=== PATIENT | male | born 1960 | race American Indian/Alaskan Native ===

== ENCOUNTER 2018-05-08 08:50 | Day surgery (SDC) | payer BC ==
[2018-05-08] MEDS ORDERED: LACTATED RINGERS 1,000 ML IV SCH (10:00)
[2018-05-08] MEDS ORDERED: ANCEF/STERILE WATER 2 GM/20 ML IV NR (10:12)
--- NOTE | 2018-05-08 10:38 | Anesthesia Day of Surgery ---
Anesthesia Day of Surgery - Day of Surgery Patient Examined: Yes Patient H&P Reviewed: Yes Patient is NPO: Yes Beta Blockers: No (on CCB) Derek's Test: N/A
--- NOTE | 2018-05-08 10:41 | Anesthesia Consultation ---
Anesthesia Consult and Med Hx Date of service: 05/08/18 - Airway Anesthetic Teeth Evaluation: Poor ROM Head & Neck: Adequate Mental/Hyoid Distance: Adequate Mallampati Class: Class II Intubation Access Assessment: Probably Good - Pulmonary Exam CTA: Yes - Cardiac Exam Cardiac Exam: RRR - Pre-Operative Health Status ASA Pre-Surgery Classification: ASA3 Proposed Anesthetic Plan: General - Pulmonary Hx Smoking: No Hx Sleep Apnea: Yes (DX SLEEP APNEA , NO CPAP USE.) - Cardiovascular System Hx Hypertension: Yes (X 20 YRS) - Other Systems Hx Cancer: No - Additional Comments Anesthesia Medical History Comments: active issues: HTN, sleep apnea (no CPAP), nephrolithiasis, ASA3 57 y.o.m with reassuring airway
[2018-05-08] MEDS ORDERED: XYLOCAINE MPF 2% ONE (10:56)
[2018-05-08] MEDS ORDERED: SUBLIMAZE ONE (10:56)
[2018-05-08] MEDS ORDERED: DIPRIVAN 10 MG/ML IV ONE (10:57)
[2018-05-08] MEDS ORDERED: VERSED IV ONE (10:58)
[2018-05-08] MEDS ORDERED: DECADRON ONE (11:33)
[2018-05-08] MEDS ORDERED: ZOFRAN ONE (11:33)
[2018-05-08] MEDS ORDERED: OMNIPAQUE 300 MG/50 ML (CATH LAB) IV ONE (11:45)
[2018-05-08] MEDS ORDERED: WATER FOR IRRIG STERILE IR ONE ×2 (12:46→12:47)
--- NOTE | 2018-05-08 12:46 | Short Stay Summary ---
Short Stay Documentation Date of service: 05/08/18 - History H&P: obtained from office - Allergies and Medications Current Medications: Allergies No Known Allergies Allergy (Verified 05/05/18 14:04) Home Medications Medication Instructions Recorded Confirmed Last Taken Type Amlodipine/Valsartan/Hcthiazid 1 each PO DAILY 05/05/18 05/05/18 Unknown History [Hdybb-Yxtbc-Ogmq 10-320-25 mg] Aspirin [Aspir-Low] 81 mg PO DAILY 05/05/18 05/05/18 Unknown History HYDROcodone/ACETAMINOPHEN 1 each PO PRN PRN 05/05/18 05/05/18 Unknown History [Hydrocodone-Acetamin 5-325 mg] Spironolactone [Aldactone] 25 mg PO QDAY 05/05/18 05/05/18 Unknown History Tamsulosin HCl [Flomax] 0.4 mg PO DAILY 05/05/18 05/05/18 Unknown History Valacyclovir HCl [Valtrex] 500 mg PO DAILY 05/05/18 05/05/18 Unknown History traMADol [Ultram] 50 mg PO Q6HR PRN 05/05/18 05/05/18 Unknown History Active Medications Cefazolin Sodium (Ancef/Sterile Water 2 Gm/20 Ml) 2 gm IV PREOP NR Stop: 05/08/18 23:59 Lactated Ringer's (Lactated Ringers) 1,000 mls @ 75 mls/hr IV DIRECT JOE Last Admin: 05/08/18 10:30 Dose: 75 mls/hr Documented by: - Brief post op/procedure progress note Date of procedure: 05/08/18 Pre-op diagnosis: rt ureteral stone Post-op diagnosis: same Procedure: cysto, rpg, rt ureteroscopy, stent.basket stone Anesthesia: GETA Surgeon: MINI WIGGINS Estimated blood loss: none Condition: stable - Hospital course Hospital course: ultram, cipro,norco,post op info, stone for pt - Disposition Condition at discharge: Stable Disposition: DC-01 TO HOME OR SELFCARE Short Stay Discharge Plan Follow up with: LORENZA GOFF MD [Primary Care Provider] - 7 Days
[2018-05-08] MEDS ORDERED: TORADOL ONE (13:08)
--- NOTE | 2018-05-08 13:08 | Operative Report ---
PREOPERATIVE DIAGNOSIS: Right midureteral stone. POSTOPERATIVE DIAGNOSIS: Right proximal ureteral stone. PROCEDURES: Cystoscopy, bilateral retrograde pyelograms, right ureteroscopy, holmium laser lithotripsy, basket stone extraction, double-J stent (6-Bulgarian 24 cm with an external string). SURGEON: Francesco Combs M.D. ANESTHESIA: General. ESTIMATED BLOOD LOSS: Minimal. FLUIDS: Crystalloid. COMPLICATIONS: No complications. INDICATIONS: This 57-year-old gentleman seen in the office for right flank pain. CT of abdomen and pelvis revealed a 6 mm stone. He elected for conservative therapy only to go to the Emergency Room with pain and presents now for surgical intervention. Risks, benefits, and complications were explained. The patient and his were agreed to proceed with surgical intervention. DESCRIPTION OF PROCEDURE: The patient was taken to the operative suite, placed in a supine position. After adequate general anesthesia, he was placed in a dorsal lithotomy position, prepped and draped in a sterile fashion. Pancystourethroscopy was performed with a 22-Bulgarian Storz cystoscope, no urethral abnormalities. His prostate was minimally obstructing his bladder. No tumors or stones were noted. Bilateral retrograde pyelograms were obtained with an 8 Bulgarian Jeff Davis catheter and 8 mL of contrast. No filling defects or obstruction on the left; right side obvious stone in the proximal ureter, 6 mm. A 0.035 Glidewire was placed. Rigid ureteroscopy up to the renal pelvis was performed. Stone was localized. It was engaged with 3-Bulgarian Rachel basket. The stone was pulled down in to the distal ureter. It was little difficult to extract and therefore, use a 200 micron holmium laser fiber, broke the stone up; Holmium laser lithotripsy using 4 campbell going up to 6 campbell with some fragmentation and allow extraction of the stone, which will be given to the patient. He tolerated the procedure well. A 6-Bulgarian 24 cm double-J stent with an external string was left indwelling. Rectal exam was benign. He was extubated and taken to recovery room in stable condition. He will go home on Cipro, [place] and Ultram. JOB# [id number] [facility]
[2018-05-08] MEDS ORDERED: TORADOL IV ONE (13:30)
--- NOTE | 2018-05-08 17:07 | Post Anesthesia Evaluation ---
- Post Anesthesia Evaluation Patient Participated: Yes Airway Patent: Yes Stable Respiratory Function: Yes Nausea/Vomiting: No Temp > 96.8F: Yes Pain Manageable: Yes Adequeate Hydration: Yes Anesthesia Complications: No
[2018-05-08 19:58] VITALS: BP 148/86
--- NOTE | 2018-05-09 07:42 | Fluoroscopy Report ---
FLUOROSCOPY RETROGRADE UROGRAPHY: HISTORY: Right ureteral stone. FINDINGS: Fluoroscopy was provided by radiology during retrograde urography by the urologist. 6 fluoroscopic images were captured. The images demonstrate a small filling defect in the proximal right ureter consistent with a stone. Right ureteroscopy was performed. The right ureteral stone was removed with use of a laser. Right ureteral stent was placed with good drainage of the right collecting system. The left retrograde pyelogram is normal. Please correlate with the procedural report if needed. IMPRESSION: Right ureteral stone removal. Right ureteral stent placement.
== END 2018-05-08 08:51 | disposition home or self-care (01) ==
LOC: OR 08:50
PROVIDERS: ATTEND Urology
DX: N20.1 Calculus of ureter (principal); E78.00 Pure hypercholesterolemia, unspecified; I10 Essential (primary) hypertension; G47.30 Sleep apnea, unspecified; K21.9 Gastro-esophageal reflux disease without esophagitis; Z79.899 Other long term (current) drug therapy; Z79.82 Long term (current) use of aspirin; Z79.01 Long term (current) use of anticoagulants; Z86.2 Personal history of diseases of the blood and blood-forming organs and certain disorders involving the immune mechanism
CPT/HCPCS: 36415; 52356; 74420; 84132; A4217; C1758; C1769; C2617; J0690; J1100; J1885; J2250; J2405; J2704; J3010; J7120; Q9967

== ENCOUNTER 2020-06-26 17:58 | Emergency (ER) | payer BC ==
--- NOTE | 2020-06-26 19:53 | XRay Report ---
CHEST 1 VIEW INDICATION / CLINICAL INFORMATION: Syncope. FINDINGS: SUPPORT DEVICES: None. HEART / MEDIASTINUM: No significant abnormality. LUNGS / PLEURA: No significant pulmonary or pleural abnormality. No pneumothorax. ADDITIONAL FINDINGS: No significant additional findings. IMPRESSION: 1. No acute findings. Signer Name: Michael Wong MD Signed: 06/26/2020 7:49 PM Workstation Name: [id number]
[2020-06-26 20:00] LABS: Basophils % (Auto) 0.7 % (0.0-1.8); Eosinophils # (Auto) 0.1 K/mm3 (0.0-0.4); Eosinophils % (Auto) 0.8 % (0.0-4.3); Hematocrit 40.3 % (35.5-45.6); Hemoglobin 13.9 gm/dl (11.8-15.2); Lymphocytes # (Auto) 1.5 K/mm3 (1.2-5.4); Lymphocytes % (Auto) 22.8 % (13.4-35.0); Mean Corpuscular HGB Conc 35 % (32-34); Mean Corpuscular Volume 91 fl (84-94); Monocytes # (Auto) 0.5 K/mm3 (0.0-0.8); Monocytes % (Auto) 7.2 % (0.0-7.3); Platelet Count 318 K/mm3 (140-440); Red Blood Count 4.44 M/mm3 (3.65-5.03); Red Cell Distribution Width 13.5 % (13.2-15.2)
--- NOTE | 2020-06-26 20:16 | Emergency Department Report ---
ED Syncope HPI - General Chief Complaint: Syncope Stated Complaint: SYNCOPE/BARDYCARDIA Time Seen by Provider: 06/26/20 19:35 - History of Present Illness Initial Comments: Chief complaint: "Doc, I am okay. I am just hungry. I am ready to go home." HPI: This is a 59-year-old male history of hypertension, GERD, kidney stones who presents with syncopal episode. Patient has been fasting since yesterday afternoon. He had a lab draw appointment that was changed from 10 AM to 1 PM. He had nuts crackers a small snack. He went to get a haircut. While sitting with the guys chatting, he began to feel lightheaded. He stood up to get some fresh air. He then fell to the ground. Possible brief loss of consciousness. No head trauma. He feels well now. Blood sugar per EMS was 120. He does desire something to eat. He says "I need a candy bar or something." Timing/Prior Episodes: single episode today Precipitating Factors: Positive: lightheadedness Context: sitting, standing Loss of Consciousness: brief (seconds) Current Symptoms: back to normal - Related Data Allergies/Adverse Reactions: Allergies No Known Allergies Allergy (Verified 05/05/18 14:04) Home Medications: Ambulatory Orders Amlodipine/Valsartan/Hcthiazid [Urvun-Iuhli-Mxqk 10-320-25 mg] 1 each PO DAILY 05/05/18 Aspirin [Aspir-Low] 81 mg PO DAILY 05/05/18 HYDROcodone/ACETAMINOPHEN [Hydrocodone-Acetamin 5-325 mg] 1 each PO PRN PRN 05/05/18 Spironolactone [Aldactone] 25 mg PO QDAY 05/05/18 Tamsulosin HCl [Flomax] 0.4 mg PO DAILY 05/05/18 Valacyclovir HCl [Valtrex] 500 mg PO DAILY 05/05/18 traMADoL [Ultram] 50 mg PO Q6HR PRN 05/05/18 ED Review of Systems ROS: Stated complaint: SYNCOPE/BARDYCARDIA Other details as noted in HPI Comment: All other systems reviewed and negative Constitutional: denies: fever, malaise Respiratory: denies: shortness of breath Cardiovascular: denies: chest pain Gastrointestinal: denies: abdominal pain, nausea, vomiting Skin: denies: rash, lesions Neurological: denies: headache ED Past Medical Hx - Past Medical History Previous Medical History?: Yes Hx Hypertension: Yes (X 20 YRS) Hx GERD: Yes (OCC) Hx Kidney Stones: Yes Hx HIV: No - Surgical History Past Surgical History?: Yes Additional Surgical History: hernia repair - Social History Smoking Status: Never Smoker Substance Use Type: Alcohol - Medications Home Medications: Home Medications Medication Instructions Recorded Confirmed Last Taken Type Amlodipine/Valsartan/Hcthiazid 1 each PO DAILY 05/05/18 05/05/18 05/08/18 08:00 History [Descc-Cerqz-Ojeo 10-320-25 mg] Aspirin [Aspir-Low] 81 mg PO DAILY 05/05/18 05/05/18 05/03/18 History HYDROcodone/ACETAMINOPHEN 1 each PO PRN PRN 05/05/18 05/05/18 05/06/18 History [Hydrocodone-Acetamin 5-325 mg] Spironolactone [Aldactone] 25 mg PO QDAY 05/05/18 05/05/18 05/08/18 08:00 History Tamsulosin HCl [Flomax] 0.4 mg PO DAILY 05/05/18 05/05/18 05/07/18 History Valacyclovir HCl [Valtrex] 500 mg PO DAILY 05/05/18 05/05/18 05/07/18 History traMADoL [Ultram] 50 mg PO Q6HR PRN 05/05/18 05/05/18 05/06/18 History ED Physical Exam - General Limitations: No Limitations General appearance: alert, in no apparent distress, other (Pleasant, nontoxic- appearing, appears in good health) - Head Head exam: Present: atraumatic, normocephalic - Eye Eye exam: Present: normal appearance - ENT ENT exam: Present: mucous membranes moist - Neck Neck exam: Present: normal inspection, full ROM - Respiratory Respiratory exam: Present: normal lung sounds bilaterally. Absent: respiratory distress, wheezes, rales, rhonchi - Cardiovascular Cardiovascular Exam: Present: regular rate, normal rhythm. Absent: systolic murmur, diastolic murmur, rubs, gallop - GI/Abdominal GI/Abdominal exam: Present: soft, normal bowel sounds - Rectal Rectal exam: Present: deferred - Extremities Exam Extremities exam: Present: normal inspection - Back Exam Back exam: Present: normal inspection - Neurological Exam Neurological exam: Present: alert, oriented X3 - Psychiatric Psychiatric exam: Present: normal affect, normal mood - Skin Skin exam: Present: warm, dry, intact, normal color. Absent: rash ED Course Vital Signs 06/26/20 06/26/20 06/26/20 19:24 19:30 19:46 Temperature 98.2 F Pulse Rate 53 L 55 L Respiratory 14 13 11 L Rate Blood Pressure 149/72 140/71 O2 Sat by Pulse 99 99 Oximetry 06/26/20 06/26/20 20:00 20:16 Temperature Pulse Rate 57 L Respiratory 14 Rate Blood Pressure 140/71 153/81 O2 Sat by Pulse 98 96 Oximetry ED Medical Decision Making - Lab Data Result diagrams: 06/26/20 19:45 06/26/20 19:45 Laboratory Results - last 24 hr 06/26/20 06/26/20 19:45 19:45 WBC 6.8 RBC 4.44 Hgb 13.9 Hct 40.3 MCV 91 MCH 31 MCHC 35 H RDW 13.5 Plt Count 318 Lymph % (Auto) 22.8 [place] % (Auto) 7.2 Eos % (Auto) 0.8 Baso % (Auto) 0.7 Lymph # (Auto) 1.5 [place] # (Auto) 0.5 Eos # (Auto) 0.1 Baso # (Auto) 0.0 Seg Neutrophils % 68.5 Seg Neutrophils # 4.6 Troponin T < 0.010 - EKG Data EKG shows normal: sinus rhythm, axis, intervals, QRS complexes Rate: bradycardia - EKG Data Interpretation: nonspecific ST-T wave cyn 06/26/20 20:35 EKG obtained 2001 EKG interpreted by ks Sinus bradycardia rate 50 bpm normal axis normal intervals no ST elevation nonspecific T wave pattern - Radiology Data Radiology results: report reviewed Chest radiograph 1 view: No acute findings according to radiologist impression - Medical Decision Making Vasovagal syncope: No indication of arrhythmia, pulmonary embolism, structural heart disease. Patient had not eaten in 24 hours. Patient did not have any preceding chest pain shortness of breath palpitations to indicate emergent cause. Patient did have preceding symptoms of lightheadedness. Patient heart rate has ranged from 53-55, he is ambulatory in spite bradycardia. He has had elevated blood pressure in spite mild bradycardia. Patient's previous medication includes amlodipine which could explain bradycardia. CBC chemistry troponin within normal limits. Patient is discharged home. I do not detect little emergent cause of syncope. Critical care attestation.: If time is entered above; I have spent that time in minutes in the direct care of this critically ill patient, excluding procedure time. ED Disposition Clinical Impression: Vasovagal syncope, Sinus bradycardia Disposition: DC-01 TO HOME OR SELFCARE Is pt being admited?: No Does the pt Need Aspirin: No Condition: Stable Instructions: Syncope (ED), Syncope, Oehd-kx-Lrdw Referrals: PRIMARY CARE, [Primary Care Provider] - 3-5 Days
[2020-06-26 20:22] VITALS: BP 153/81
[2020-06-26 20:35] LABS: Alanine Aminotransferase 29 units/L (7-56); Albumin 4.3 g/dL (3.9-5); BUN/Creatinine Ratio 15; Blood Urea Nitrogen 20 mg/dL (9-20); Calcium 9.4 mg/dL (8.4-10.2); Hemolysis Index 9
--- NOTE | 2020-06-27 17:13 | Electrocardiograph Report ---
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
== END 2020-06-26 20:50 | disposition home or self-care (01) ==
LOC: ED 17:58
DX: R55 Syncope and collapse (principal); R00.1 Bradycardia, unspecified; I10 Essential (primary) hypertension; K21.9 Gastro-esophageal reflux disease without esophagitis; Z98.890 Other specified postprocedural states; Z79.899 Other long term (current) drug therapy
CPT/HCPCS: 36415; 71045; 80053; 84484; 85025; 93005

== ENCOUNTER 2020-10-15 05:50 | Day surgery (SDC) | payer BC ==
[2020-10-15] MEDS ORDERED: MIDAZOLAM 2 MG/2 ML INJ IV NR (06:00)
[2020-10-15] MEDS ORDERED: LACTATED RINGERS 1,000 ML IV SCH (06:00)
[2020-10-15] MEDS ORDERED: BACTERIOSTATIC SODIUM CHLORIDE 0.9% 30 ML VIAL INFILTRATI ONE (06:32)
[2020-10-15] MEDS ORDERED: ceFAZolin/STERILE WATER 2 GM/20 ML SYRINGE IV NR (07:00)
--- NOTE | 2020-10-15 07:10 | Anesthesia Consultation ---
Anesthesia Consult and Med Hx Date of service: 10/15/20 - Airway Anesthetic Teeth Evaluation: Good ROM Head & Neck: Adequate Mental/Hyoid Distance: Adequate Mallampati Class: Class III Intubation Access Assessment: Possibly Difficult - Cardiac Exam Cardiac Exam: RRR - Pre-Operative Health Status ASA Pre-Surgery Classification: ASA3 Proposed Anesthetic Plan: General - Pulmonary Hx Smoking: No Hx Respiratory Symptoms: No Hx Sleep Apnea: Yes (no CPAP) - Cardiovascular System Hx Hypertension: Yes (took antihypertensives this morning) Hx Heart Attack/AMI: No Hx Cardia Arrhythmia: Yes (cardiology eval on chart) Hx Pacemaker: No Hx Internal Defibrillator: No - Central Nervous System CVA: No - Endocrine Hx Renal Disease: No Hx Liver Disease: No Hx Insulin Dependent Diabetes: No Hx Non-Insulin Dependent Diabetes: No Hx Thyroid Disease: No - Additional Comments Anesthesia Medical History Comments: No hx anesthetic complications.
--- NOTE | 2020-10-15 07:10 | Anesthesia Day of Surgery ---
Anesthesia Day of Surgery - Day of Surgery Patient Examined: Yes Patient H&P Reviewed: Yes Patient is NPO: Yes
[2020-10-15] MEDS ORDERED: fentaNYL 100 MCG/2 ML INJ ONE (07:13)
[2020-10-15] MEDS ORDERED: propofoL 200 MG/20 ML VIAL IV ONE (07:14)
[2020-10-15] MEDS ORDERED: ePHEDrine SULFATE 50 MG/1 ML INJ ONE ×2 (07:14→08:32)
[2020-10-15 07:22] LABS: BUN/Creatinine Ratio 17; Blood Urea Nitrogen 22 mg/dL (9-20); Calcium 8.9 mg/dL (8.4-10.2); Hemolysis Index 10
[2020-10-15] MEDS ORDERED: WATER FOR IRRIG STERILE 2000 ML IR ONE ×2 (07:30)
[2020-10-15] MEDS ORDERED: WATER FOR IRRIG STERILE 1,500 ML BOTTLE IR ONE (07:31)
[2020-10-15] MEDS ORDERED: LIDOCAINE MPF (2%) 20 MG/1 ML VIAL 5 ML ONE (08:30)
[2020-10-15] MEDS ORDERED: ONDANSETRON 4 MG/2 ML INJ ONE (08:30)
[2020-10-15] MEDS ORDERED: dexAMETHasone 20 MG/5 ML VIAL ONE (08:30)
[2020-10-15] MEDS ORDERED: HYDROcodone/ACETAMINOPHEN 5-325 MG TAB PO PRN (09:00)
[2020-10-15] MEDS ORDERED: ONDANSETRON 4 MG/2 ML INJ IV PRN (09:00)
[2020-10-15] MEDS ORDERED: fentaNYL 100 MCG/2 ML INJ IV PRN (09:00)
--- NOTE | 2020-10-15 09:02 | Short Stay Summary ---
Short Stay Documentation Date of service: 10/15/20 - History H&P: obtained from office - Allergies and Medications Current Medications: Allergies No Known Allergies Allergy (Verified 05/05/18 14:04) Home Medications Medication Instructions Recorded Confirmed Last Taken Type Aspirin [Aspir-Low] 81 mg PO DAILY 05/05/18 10/09/20 05/03/18 History Adult Probiotic 1 cap PO DAILY 10/07/20 10/07/20 Unknown History Amlodipine Besylate 10 mg PO BID 10/07/20 10/14/20 Unknown History Ezetimibe 10 mg PO DAILY 10/07/20 10/07/20 Unknown History Metamucil 1 dose PO DAILY 10/07/20 10/07/20 Unknown History Nebivolol HCl [Bystolic] 5 mg PO QHS 10/07/20 10/14/20 Unknown History Spironolactone [Aldactone] 25 mg PO PRN PRN 10/09/20 10/14/20 Unknown History Valacyclovir HCl [Valacyclovir] 500 mg PO PRN PRN 10/09/20 10/09/20 Unknown History cloNIDine [Catapres] 0.1 mg PO PRN PRN 10/09/20 10/14/20 Unknown History hydrALAZINE [Apresoline] 50 mg PO BID 10/09/20 10/09/20 Unknown History Tamsulosin [Flomax] 0.4 mg PO QDAY 10/14/20 10/14/20 Unknown History Valsartan/Hydrochlorothiazide 1 each PO DAILY 10/14/20 10/14/20 Unknown History [Valsartan-Hctz 320-25 mg Tab] Active Medications Cefazolin Sodium (Cefazolin/Sterile Water 2 Gm/20 Ml Syringe) 2 gm IV PREOP NR Stop: 10/15/20 23:59 Lactated Ringer's (Lactated Ringers) 1,000 mls @ 100 mls/hr IV DIRECT JOE Stop: 10/15/20 23:59 Midazolam HCl (Midazolam 2 Mg/2 Ml Inj) 2 mg IV PREOP NR Stop: 10/15/20 23:00 - Brief post op/procedure progress note Date of procedure: 10/15/20 Pre-op diagnosis: rt hydronephrosis Post-op diagnosis: same Procedure: cysto, bilat rpg, rt ureteroscopy stent (stricture) Anesthesia: GETA Surgeon: MINI WIGGINS Estimated blood loss: none Pathology: none Condition: stable - Hospital course Hospital course: bactrim, norduke , post op info on chart - Disposition Condition at discharge: Stable Disposition: DC-01 TO HOME OR SELFCARE Short Stay Discharge Plan Follow up with: LORENZA GOFF MD [Primary Care Provider] - 7 Days
--- NOTE | 2020-10-15 09:23 | Fluoroscopy Report ---
FLUOROSCOPY RETROGRADE UROGRAPHY HISTORY: Right hydronephrosis COMPARISON: 05/08/2018 FINDINGS: 1.4 minutes of fluoroscopy time was provided by radiology during retrograde urography by ur elkinogy. 8 fluoroscopic images are presented. The left retrograde pyelogram is normal. No images of the right retrograde pyelogram are presented. Right ureteroscopy was performed before the operative note s. A right ureteral stricture was apparently noted. Subsequent images demonstrate placement of a doub le-J right ureteral stent which is in good position on the final image. Please correlate with the pro cedural report. IMPRESSION: Right ureteral stent placement as described. Please correlate with the procedural report as needed. Signer Name: Jose Harding Jr, MD Signed: 10/15/2020 9:19 AM Workstation Name: [id number]
--- NOTE | 2020-10-15 09:35 | Operative Report ---
DATE OF SURGERY: 10/15/2020 PREOPERATIVE DIAGNOSIS: Right hydronephrosis. POSTOPERATIVE DIAGNOSIS: Right hydronephrosis, secondary to distal stricture. PROCEDURES PERFORMED: Cystoscopy, bilateral retrograde pyelograms, right ureteroscopy, double-J stent placement (6-Slovenian 22 cm with a short internal string). SURGEON: Francesco Combs MD ANESTHESIA: General. ESTIMATED BLOOD LOSS: Minimal. FLUIDS: Crystalloid. COMPLICATIONS: No complications. INDICATIONS: This patient is a 59-year-old gentleman, known to our service with a history of kidney stones, status post right stone extraction in 2019. He has been followed conservatively since that time. 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 Workup revealed right hydronephrosis. He presents now for intervention. DESCRIPTION OF PROCEDURE: The patient was taken to the operative suite, placed in the supine position. After adequate general anesthesia, placed in the dorsal lithotomy position, prepped and draped in a sterile fashion. Pancystourethroscopy was performed with a 22-Slovenian Storz cystoscope. No urethral abnormalities. His prostate displayed some mild trilobar obstruction. His bladder, mild diffuse trabeculation. Bilateral retrograde pyelograms were obtained with an 8-Slovenian Huron catheter and 8 mL of contrast. No filling defects or obstruction on the left. Right side could only feel the distal ureter. Next, after attempts with a 0.035 Glidewire, a curved open-ended catheter could not advance the wire. Right ureteroscopy was then performed. I was able to advance the scope into approximately 1 cm of the distal ureter and at that point, I was able to advance a 0.035 Glidewire up into the collecting system under fluoroscopic guidance. I was able to perform ureteroscopy to the lower aspect of the SI joint. I encouraged a dense stricture, could not advance my scope at that point. I then elected to place a 6-Slovenian 22 cm double-J stent with a short string to allow dilation of the tract and will come back at a later date for further evaluation. We will also put him on antibiotics to minimize infection. Rectal exam was benign. He was extubated and taken to recovery room and go home on Bactrim and [place]. TID: [id number] RECEIPT: [id number] [facility]
[2020-10-15 10:11] VITALS: BP 145/81
== END 2020-10-15 10:25 | disposition home or self-care (01) ==
LOC: OR 05:50
PROVIDERS: ATTEND Urology
DX: N13.39 Other hydronephrosis (principal); G47.30 Sleep apnea, unspecified; I10 Essential (primary) hypertension; K21.9 Gastro-esophageal reflux disease without esophagitis; E78.00 Pure hypercholesterolemia, unspecified; M19.90 Unspecified osteoarthritis, unspecified site; Z87.442 Personal history of urinary calculi; Z79.82 Long term (current) use of aspirin; Z79.899 Other long term (current) drug therapy; Z98.890 Other specified postprocedural states
CPT/HCPCS: 36415; 52332; 74420; 80048; A4217; C1726; C1758; C1769; C2617; J0690; J1100; J2250; J2405; J2704; J3010; J7120; Q9967

== ENCOUNTER 2020-11-05 05:51 | Day surgery (SDC) | payer BC ==
[~2020-11-05 05:51] MED LIST: IOHEXOL 300 MG/ML 50ML IV ONE; WATER FOR IRRIG STERILE 1,500 ML BOTTLE IR ONE; WATER FOR IRRIG STERILE 2000 ML IR ONE
[2020-11-05] MEDS ORDERED: BACTERIOSTATIC SODIUM CHLORIDE 0.9% 30 ML VIAL INFILTRATI ONE (06:19)
[2020-11-05] MEDS ORDERED: ceFAZolin/Water 2 GM/20 ML 2 GM/20 ML SYRINGE IV ONE (06:20)
[2020-11-05] MEDS ORDERED: LACTATED RINGERS 1,000 ML IV SCH (06:30)
--- NOTE | 2020-11-05 07:24 | Anesthesia Day of Surgery ---
Anesthesia Day of Surgery - Day of Surgery Patient Examined: Yes Patient H&P Reviewed: Yes Patient is NPO: Yes Beta Blockers: Yes Cardiac Clearance: Yes
[2020-11-05] MEDS ORDERED: HYDROmorphone 1 MG/1 ML INJ IV NR (07:27)
[2020-11-05] MEDS ORDERED: LIDOCAINE PF 100 MG/5 ML (CARDIAC SYRINGE) IV ONE (07:27)
[2020-11-05] MEDS ORDERED: MIDAZOLAM 2 MG/2 ML INJ IV NR (07:27)
[2020-11-05] MEDS ORDERED: propofoL 200 MG/20 ML VIAL IV ONE (07:28)
[2020-11-05] MEDS ORDERED: fentaNYL 100 MCG/2 ML INJ ONE (07:28)
[2020-11-05] MEDS ORDERED: ceFAZolin/STERILE WATER 2 GM/20 ML SYRINGE IV NR (07:28)
--- NOTE | 2020-11-05 07:29 | Anesthesia Consultation ---
Anesthesia Consult and Med Hx Date of service: 11/05/20 - Airway Anesthetic Teeth Evaluation: Chipped, Bridges ROM Head & Neck: Adequate Mental/Hyoid Distance: Adequate Mallampati Class: Class II Intubation Access Assessment: Good - Pre-Operative Health Status ASA Pre-Surgery Classification: ASA3 Proposed Anesthetic Plan: General - Pulmonary Hx Respiratory Symptoms: No (+2FS) Hx Sleep Apnea: Yes (no CPAP) - Cardiovascular System Hx Hypertension: Yes Hx Cardia Arrhythmia: Yes (cardiology eval on chart) - Central Nervous System Hx Back Pain: Yes (LOWER) Hx Psychiatric Problems: No - Endocrine Hx Renal Disease: Yes (Stones) Hx Insulin Dependent Diabetes: No Hx Non-Insulin Dependent Diabetes: No Hx Thyroid Disease: No - Hematic Hx Sickle Cell Disease: No - Other Systems Hx Alcohol Use: Yes (OCC.) Hx Substance Use: No Hx Cancer: No - Additional Comments Anesthesia Medical History Comments: Was here [id number]
[2020-11-05] MEDS ORDERED: dexAMETHasone 20 MG/5 ML VIAL ONE (07:32)
[2020-11-05] MEDS ORDERED: KETAMINE/STERILE WATER 50 MG/ML SYRINGE ONE (07:36)
[2020-11-05] MEDS ORDERED: ePHEDrine SULFATE 50 MG/1 ML INJ ONE (08:02)
[2020-11-05] MEDS ORDERED: IOHEXOL 300 MG/ML 50ML IV ONE (08:13)
[2020-11-05] MEDS ORDERED: WATER FOR IRRIG STERILE 2000 ML IR ONE (08:13)
[2020-11-05] MEDS ORDERED: WATER FOR IRRIG STERILE 1,500 ML BOTTLE IR ONE (08:13)
[2020-11-05] MEDS ORDERED: PHENYLEPHRINE/NS 1,000 MCG/10 ML SYRINGE (OR USE) IV ONE (09:00)
--- NOTE | 2020-11-05 09:04 | Short Stay Summary ---
Short Stay Documentation Date of service: 11/05/20 - History H&P: obtained from office - Allergies and Medications Current Medications: Allergies No Known Allergies Allergy (Verified 11/04/20 10:27) Home Medications Medication Instructions Recorded Confirmed Last Taken Type Aspirin [Aspir-Low] 81 mg PO DAILY 05/05/18 11/04/20 10/13/20 History Adult Probiotic 1 cap PO DAILY 10/07/20 11/04/20 10/14/20 History Amlodipine Besylate 10 mg PO BID 10/07/20 11/04/20 10/14/20 History Ezetimibe 10 mg PO DAILY 10/07/20 11/04/20 10/14/20 History Metamucil 1 dose PO DAILY 10/07/20 11/04/20 10/14/20 History Nebivolol HCl [Bystolic] 5 mg PO QHS 10/07/20 11/04/20 10/14/20 History Spironolactone [Aldactone] 25 mg PO PRN PRN 10/09/20 11/04/20 10/14/20 History Valacyclovir HCl [Valacyclovir] 500 mg PO PRN PRN 10/09/20 11/04/20 1 Week Ago History ~10/08/20 cloNIDine [Catapres] 0.1 mg PO PRN PRN 10/09/20 11/04/20 10/15/20 04:00 History hydrALAZINE [Apresoline] 50 mg PO BID 10/09/20 11/04/20 10/15/20 04:00 History Tamsulosin [Flomax] 0.4 mg PO QDAY 10/14/20 11/04/20 10/14/20 History Valsartan/Hydrochlorothiazide 1 each PO DAILY 10/14/20 11/04/20 10/14/20 History [Valsartan-Hctz 320-25 mg Tab] Active Medications Cefazolin Sodium (Cefazolin/Sterile Water 2 Gm/20 Ml Syringe) 2 gm IV PREOP NR Stop: 11/05/20 14:00 Hydromorphone HCl (Hydromorphone 1 Mg/1 Ml Inj) 0.5 mg IV ONCE NR Stop: 11/05/20 12:00 Lactated Ringer's (Lactated Ringers) 1,000 mls @ 100 mls/hr IV DIRECT JOE Midazolam HCl (Midazolam 2 Mg/2 Ml Inj) 2 mg IV ONCE NR Stop: 11/05/20 12:00 - Brief post op/procedure progress note Date of procedure: 11/05/20 Pre-op diagnosis: rt ureteral stricture Post-op diagnosis: same Procedure: cysto, rpg, rt ureteroscopy, balloon stricture, barbotage (rt ureter), stent exchange Anesthesia: GETA Surgeon: MINI WIGGINS Estimated blood loss: none - Hospital course Hospital course: bactrim, norco , post op info on chart - Disposition Condition at discharge: Stable Disposition: 01 HOME / SELF CARE / HOMELESS Short Stay Discharge Plan Follow up with: LORENZA GOFF MD [Primary Care Provider] - 7 Days
[2020-11-05] MEDS ORDERED: ONDANSETRON 4 MG/2 ML INJ ONE (09:18)
--- NOTE | 2020-11-05 09:30 | Operative Report ---
DATE OF SURGERY: 11/05/2020 PREOPERATIVE DIAGNOSES: Right hydronephrosis, right ureteral stricture. POSTOPERATIVE DIAGNOSES: Right hydronephrosis, right ureteral stricture. PROCEDURES PERFORMED: Cystoscopy, right retrograde pyelogram, right ureteroscopy, balloon dilation right ureteral stricture, barbotage right ureter, double-J stent exchange (6-S[place] 24 cm with a short internal string). SURGEON: Fracnesco Combs MD ANESTHESIA: General. ESTIMATED BLOOD LOSS: Minimal. FLUIDS: Crystalloid. COMPLICATIONS: No complications. INDICATIONS: This patient is a 59-year-old gentleman known to our service with a history of kidney stones, status post ureteroscopies in the past. Recently, he had hydronephrosis, underwent cystoscopy, stent. Ureteroscopy revealed a dense stricture. I was able to get up stent at that time and he presents today for a second look and possible evaluation for stone. DESCRIPTION OF PROCEDURE: The patient was taken to the operative suite, placed in a supine position. After adequate general anesthesia, placed in the dorsal lithotomy position, prepped and draped in a sterile fashion. Pancystourethroscopy was performed with a 22-[place] Storz cystoscope. No urethral or prostatic abnormalities. Bladder, obvious stent left in the right ureter with a short string. The stent was pulled out to the meatus. The wire was advanced into the ureter under fluoroscopic guidance. Rigid ureteroscopy up to the area of concern, which is just above the lower aspect of the SI joint, approximately 1 cm above the SI joint. There was whitish material, appears to be scar tissue. I was able to pass a second wire and after multiple attempts, I was unable to advance my scope. Therefore, I then placed a 4 [place] balloon dilator, dilated the stricture and I was then able to advance my scope into the renal pelvis. No stones could be appreciated. No signs of tumor. A barbotage was taken above the stricture and I pulled my scope back to the area of concern and took some more barbotage specimen. The area of concern appears to be approximately 1 cm, whitish, and has some areas of erythema, does not look like obvious tumor. A 6-[place] 24 cm double-J stent with a short internal string was left indwelling. Rectal exam was benign. He was extubated and taken to recovery room. He will go home on [place] and [place]. We will wait for the path specimen to determine if the segment of the ureter can be excised with a primary reanastomosis versus nephrectomy as other options. TID: [id number] RECEIPT: [id number] MIMI/LORENA
[2020-11-05 10:34] VITALS: BP 130/77
--- NOTE | 2020-11-05 11:37 | Fluoroscopy Report ---
FL retrograde urography, FL ureter/nephrostomy dilat RT INDICATION / CLINICAL INFORMATION: URETHRAL STRICTURE. COMPARISON: None available. FINDINGS: Alignment dilatation and stent placement. Fluoroscopy time: 36 seconds. Fluoroscopic images: 9 Signer Name: King Stephenson MD Signed: 11/05/2020 11:32 AM Workstation Name: [id number]
--- NOTE | 2020-11-05 15:31 | Post Anesthesia Evaluation ---
- Post Anesthesia Evaluation Patient Participated: Yes Airway Patent: Yes Stable Respiratory Function: Yes Nausea/Vomiting: No Temp > 96.8F: Yes Pain Manageable: Yes Adequeate Hydration: Yes Anesthesia Complications: No Block Receding Appropriately: Not Applicable Patient on Ventilator: No
== END 2020-11-05 10:50 | disposition home or self-care (01) ==
LOC: OR 05:51
PROVIDERS: ATTEND Urology
DX: N13.1 Hydronephrosis with ureteral stricture, not elsewhere classified (principal); I10 Essential (primary) hypertension; G47.30 Sleep apnea, unspecified; E78.00 Pure hypercholesterolemia, unspecified; M19.90 Unspecified osteoarthritis, unspecified site; Z79.82 Long term (current) use of aspirin; Z79.899 Other long term (current) drug therapy; Z98.890 Other specified postprocedural states
CPT/HCPCS: 36415; 52332; 74420; 74485; 84132; 88112; A4217; C1726; C1769; C2617; J0690; J1100; J1170; J2001; J2250; J2370; J2405; J2704; J3010; J3490; J7120; Q9967